=== PATIENT | male | born 1955 | race Caucasian/White ===

== ENCOUNTER 2017-07-21 09:12 | Inpatient (IN) | payer OTHER, MEDICARE ==
[2017-07-21] VITALS (7 sets, daily range): BP systolic 90–121; BP diastolic 48–59
[~2017-07-21] VITALS: Ht 170.2 cm; Wt 115.4 kg
[2017-07-21 09:52] LABS: ALBUMIN 3.6 g/dL (3.2-4.8); CHLORIDE 102 mEq/L (99-109); SODIUM 140 mEq/L (136-147)
[2017-07-21 09:54] LABS: GLUCOSE 127 mg/dL (70-99)
[2017-07-21 09:55] LABS: BASOPHIL (%) 0 % (0-1); EOSINOPHIL (%) 0 % (0-5); HEMATOCRIT 16.8 % (38.0-50.0); IMMATURE GRANULOCYTE (%) 1.2 % (0.0-0.7); LYMPHOCYTE (%) 2.7 % (15-42); LYMPHOCYTE COUNT 0.6 K/uL (1.0-2.8); MCH 24.4 PG (29.0-34.0); MCHC 29.8 G/DL (30.0-36.0); MONOCYTE (%) 4.4 % (3-12); MONOCYTE COUNT 0.9 K/uL (0-0.8); NEUTROPHIL (%) 91.7 % (45-76); NRBC (%) 0.5 /100 WBC (0-0); PLATELET COUNT 141 K/uL (156-360); RBC DIS.WIDTH-CV 20.2 % (11.8-14.6); RBC DIS.WIDTH-SD 58.6 % (39-53); RED BLOOD COUNT 2.05 M/uL (4.00-5.50); WHITE BLOOD COUNT 20.7 K/uL (4.1-10.2)
[2017-07-21 09:56] LABS: TOTAL BILIRUBIN 3.4 mg/dL (0.0-1.0)
[2017-07-21 09:58] LABS: ALKALINE PHOSPHATASE 355 IU/L (3-129); CREATININE 8.7 mg/dL (0.6-1.3); GFR ESTIMATE (CALCULATED) 7 mL/min/ (58.99-99999)
[2017-07-21 10:00] LABS: AST (GOT) 211 IU/L (2-34)
[2017-07-21 10:01] LABS: ALT (GPT) 265 IU/L (3-49)
[2017-07-21 10:03] LABS: POTASSIUM 6.3 mEq/L (3.7-5.4)
[2017-07-21 10:12] LABS: UREA NITROGEN (BUN) 179 mg/dL (9-23)
[2017-07-21] MEDS ORDERED: AMLODIPINE BES2.5 MG PO (10:47)
[2017-07-21] MEDS ORDERED: CLOPIDOGREL75 MG PO (10:48)
[2017-07-21] MEDS ORDERED: VALSARTAN160 MG PO (10:49)
[2017-07-21] MEDS ORDERED: CILOSTAZOL50 MG PO (10:49)
[2017-07-21] MEDS ORDERED: ELIQUIS5 MG PO (10:50)
[2017-07-21] MEDS ORDERED: LOPRESSOR50 MG PO (10:50)
[2017-07-21] MEDS ORDERED: ZANTAC150 MG PO (10:51)
[2017-07-21 11:08] LABS: INTER. NORMALIZED RATIO 1.3
[2017-07-21 11:08] LABS: APPEARANCE CLOUDY ((CLEAR)); BILIRUBIN NEGATIVE; BLOOD MODERATE; COLOR AMBER ((YELLOW)); GLUCOSE (STRIP) NEGATIVE; KETONES NEGATIVE; LEUKOCYTES LARGE; NITRITE NEGATIVE; PROTEIN (STRIP) 100; SPECIFIC GRAVITY 1.014 (1.000-1.030); UROBILINOGEN 0.2 MG/DL (0.2-1.0)
[2017-07-21 11:31] LABS: RED BLOOD CELLS TNTC /HPF (0-5); WHITE BLOOD CELLS TNTC /HPF (0-5)
[2017-07-21 11:32] LABS: AMORPHOUS URATES CRYSTALS 2+; BACTERIA 2+ /HPF; EPITHELIAL CELLS NONE SEEN /HPF; MUCUS NONE SEEN /LPF; UCUL ADDED? YES
[2017-07-21 13:28] LABS: BASE EXCESS -0.9 mEq/L (-3 to +3); BICARBONATE 21.3 mEq/L (22-26); PCO2 28 mm Hg (35-45); PO2 76 mm Hg (80-100); SITE RR; pH 7.49 (7.35-7.45)
[2017-07-21 13:29] LABS: COMMENTS - BLOOD GASES NAC+; FI02 21 %
[2017-07-21 17:34] LABS: CHLORIDE 102 MEQ/L (99-109); CREATININE 7.9 MG/DL (0.6-1.3); GFR ESTIMATE (CALCULATED) 7 mL/min/ (58.99-99999); GLUCOSE 134 mg/dL (70-99); POTASSIUM 5.5 MEQ/L (3.7-5.4); SODIUM 140 MEQ/L (136-147); UREA NITROGEN (BUN) 170 mg/dL (9-23)
[2017-07-21 21:16] LABS: HEMATOCRIT 18.6 % (38.0-50.0); HEMOGLOBIN 5.8 G/DL (12.5-16.6); MCV 83.4 FL (86-99)
[2017-07-21 21:39] LABS: CHLORIDE 102 MEQ/L (99-109); CREATININE 7.7 MG/DL (0.6-1.3); GFR ESTIMATE (CALCULATED) 8 mL/min/ (58.99-99999); GLUCOSE 136 mg/dL (70-99); POTASSIUM 5.3 MEQ/L (3.7-5.4); SODIUM 139 MEQ/L (136-147)
[2017-07-21 21:40] LABS: UREA NITROGEN (BUN) 164 mg/dL (9-23)
[2017-07-21 22:07] LABS: HEMATOCRIT 19.3 % (38.0-50.0); MCH 25.9 PG (29.0-34.0); MCHC 31.1 G/DL (30.0-36.0); MCV 83.2 FL (86-99); NRBC (%) 0.3 /100 WBC (0-0); RBC DIS.WIDTH-CV 19.7 % (11.8-14.6); RBC DIS.WIDTH-SD 59.3 % (39-53); RED BLOOD COUNT 2.32 M/uL (4.00-5.50); WHITE BLOOD COUNT 17.8 K/uL (4.1-10.2)
[2017-07-21 22:14] LABS: PLATELET COUNT ND K/uL (156-360)
[2017-07-21 22:19] LABS: ALKALINE PHOSPHATASE 267 IU/L (3-129); ALT (GPT) 199 IU/L (3-49); AST (GOT) 161 IU/L (2-34); CHLORIDE 104 MEQ/L (99-109); CREATININE 7.8 MG/DL (0.6-1.3); GFR ESTIMATE (CALCULATED) 8 mL/min/ (58.99-99999); GLUCOSE 132 mg/dL (70-99); MAGNESIUM 4.1 mg/dl (1.3-2.7); PHOSPHORUS 6.3 mg/dL (2.5-4.9); POTASSIUM 5.5 MEQ/L (3.7-5.4); SODIUM 141 MEQ/L (136-147); TOTAL BILIRUBIN 3.2 MG/DL (0.0-1.0); TOTAL PROTEIN 5.4 G/DL (6.4-8.3)
[2017-07-21 22:25] LABS: UREA NITROGEN (BUN) 162 mg/dL (9-23)
[2017-07-22] VITALS (9 sets, daily range): BP systolic 97–119; BP diastolic 50–89
[2017-07-22 00:02] LABS: APPEARANCE TURBID ((CLEAR)); BILIRUBIN NEGATIVE; BLOOD MODERATE; GLUCOSE (STRIP) NEGATIVE; KETONES NEGATIVE; LEUKOCYTES LARGE; NITRITE NEGATIVE; PROTEIN (STRIP) 100; SPECIFIC GRAVITY 1.013 (1.000-1.030); UROBILINOGEN 0.2 MG/DL (0.2-1.0)
[2017-07-22 00:04] LABS: COLOR YELLOW ((YELLOW))
[2017-07-22 00:41] LABS: WHITE BLOOD CELLS TNTC /HPF (0-5)
[2017-07-22 00:42] LABS: BACTERIA 3+ /HPF; EPITHELIAL CELLS 1+ /HPF; MUCUS NONE SEEN /LPF; RED BLOOD CELLS TNTC /HPF (0-5)
[2017-07-22 00:45] LABS: AMORPHOUS URATES CRYSTALS 1+; FINE GRANULAR CASTS 0-5 /LPF
[2017-07-22 02:25] LABS: HEMATOCRIT 19.6 % (38.0-50.0); HEMOGLOBIN 6.2 G/DL (12.5-16.6); MCV 83.1 FL (86-99)
[2017-07-22 07:51] LABS: HEMATOCRIT 19.7 % (38.0-50.0); MCV 84.5 FL (86-99)
[2017-07-22 07:52] LABS: INTER. NORMALIZED RATIO 1.2
[2017-07-22 07:54] LABS: PTT 20.9 SEC (25-37)
[2017-07-22 08:27] LABS: ALBUMIN 3.1 G/DL (3.2-4.8); ALKALINE PHOSPHATASE 283 IU/L (3-129); ALT (GPT) 218 IU/L (3-49); AST (GOT) 178 IU/L (2-34); CHLORIDE 105 MEQ/L (99-109); CREATININE 7.9 MG/DL (0.6-1.3); GFR ESTIMATE (CALCULATED) 7 mL/min/ (58.99-99999); GLUCOSE 146 mg/dL (70-99); POTASSIUM 5.4 MEQ/L (3.7-5.4); SODIUM 142 MEQ/L (136-147); TOTAL BILIRUBIN 3.6 MG/DL (0.0-1.0); TOTAL PROTEIN 5.1 G/DL (6.4-8.3)
[2017-07-22 08:39] LABS: UREA NITROGEN (BUN) 161 mg/dL (9-23)
[2017-07-22 14:32] LABS: ANTI-HEPATITIS B CORE (TOTAL) Nonreactive
[2017-07-22 14:33] LABS: HEPATITIS B SURFACE ANTIBODY Nonreactive; HEPATITIS B SURFACE ANTIGEN Nonreactive; HEPATITIS C ANTIBODY Nonreactive
[2017-07-22 14:35] LABS: ANTI-HEPATITIS A VIRUS (IGM) Nonreactive
[2017-07-22 15:12] LABS: BASOPHIL (%) 0.1 % (0-1); EOSINOPHIL (%) 0.1 % (0-5); HEMATOCRIT 22.9 % (38.0-50.0); HEMOGLOBIN 7.2 G/DL (12.5-16.6); IMMATURE GRANULOCYTE (%) 1.8 % (0.0-0.7); LYMPHOCYTE COUNT 0.6 K/uL (1.0-2.8); MCH 27.2 PG (29.0-34.0); MCHC 31.4 G/DL (30.0-36.0); MCV 86.4 FL (86-99); MONOCYTE (%) 5.2 % (3-12); NEUTROPHIL (%) 89.8 % (45-76); NRBC (%) 0.3 /100 WBC (0-0); RBC DIS.WIDTH-CV 19.3 % (11.8-14.6); RBC DIS.WIDTH-SD 59.7 % (39-53); RED BLOOD COUNT 2.65 M/uL (4.00-5.50); WHITE BLOOD COUNT 18.9 K/uL (4.1-10.2)
[2017-07-22 15:15] LABS: PLATELET COUNT 75 K/uL (156-360)
[2017-07-23 03:51] VITALS: BP 112/62
[2017-07-23 07:16] VITALS: BP 133/66
[2017-07-23 12:19] LABS: ANTI-HEPATITIS B CORE (IGM) Nonreactive
[2017-07-23 13:15] LABS: BASOPHIL (%) 0.1 % (0-1); EOSINOPHIL (%) 0.1 % (0-5); HEMATOCRIT 25.8 % (38.0-50.0); HEMOGLOBIN 8.1 G/DL (12.5-16.6); IMMATURE GRANULOCYTE (%) 1.5 % (0.0-0.7); LYMPHOCYTE (%) 2.9 % (15-42); LYMPHOCYTE COUNT 0.5 K/uL (1.0-2.8); MCH 27.2 PG (29.0-34.0); MCHC 31.4 G/DL (30.0-36.0); MCV 86.6 FL (86-99); MONOCYTE COUNT 1.1 K/uL (0-0.8); NEUTROPHIL (%) 89.4 % (45-76); NEUTROPHIL COUNT 16.5 K/uL (1.8-6.4); NRBC (%) 0.2 /100 WBC (0-0); RBC DIS.WIDTH-CV 19.3 % (11.8-14.6); RBC DIS.WIDTH-SD 59.6 % (39-53); RED BLOOD COUNT 2.98 M/uL (4.00-5.50); WHITE BLOOD COUNT 18.4 K/uL (4.1-10.2)
[2017-07-23 13:28] LABS: IMM.PLATELET FRACTION 6.2 (1-7); PLAT.SUFFICIENCY VERY DECREASED
[2017-07-23] MEDS ORDERED: CEFDINIR300 MG PO (13:32)
[2017-07-23 13:42] LABS: ALKALINE PHOSPHATASE 295 IU/L (3-129); ALT (GPT) 193 IU/L (3-49); AST (GOT) 177 IU/L (2-34); CHLORIDE 105 MEQ/L (99-109); GLUCOSE 117 mg/dL (70-99); POTASSIUM 4.9 MEQ/L (3.7-5.4); SODIUM 141 MEQ/L (136-147); TOTAL PROTEIN 5.2 G/DL (6.4-8.3)
[2017-07-23 13:52] LABS: CREATININE 5.9 MG/DL (0.6-1.3); GFR ESTIMATE (CALCULATED) 10 mL/min/ (58.99-99999); TOTAL BILIRUBIN 5.2 MG/DL (0.0-1.0); UREA NITROGEN (BUN) 111 mg/dL (9-23)
[2017-07-23 14:03] LABS: PLATELET COUNT 49 K/uL (156-360)
== END 2017-07-23 15:40 | disposition hospice, home (50) | DRG 843 ==
LOC: EME 09:12 → EDOF 11:34 → 4EAST 11:34 → ENRESERV 11:38 → EDOF 11:38 → ENRESERV 11:52 → 4EAST 14:35
PROVIDERS: Emergency Medicine; Hospitalist; Internal Medicine; Internal Medicine Nephrology
PROC: 30233N1 Transfusion of Nonautologous Red Blood Cells into Peripheral Vein, Percutaneous Approach (ICD-10-PCS; principal; 2017-07-21)
PROC: 02HV33Z Insertion of Infusion Device into Superior Vena Cava, Percutaneous Approach (ICD-10-PCS; 2017-07-22)
PROC: 5A1D70Z Performance of Urinary Filtration, Intermittent, Less than 6 Hours Per Day (ICD-10-PCS; 2017-07-22)
DX: C80.1 Malignant (primary) neoplasm, unspecified (principal); N17.0 Acute kidney failure with tubular necrosis; K76.7 Hepatorenal syndrome; K92.2 Gastrointestinal hemorrhage, unspecified; E87.5 Hyperkalemia; E87.2 Acidosis; E86.0 Dehydration; N28.0 Ischemia and infarction of kidney; I48.91 Unspecified atrial fibrillation; T80.89XA Other complications following infusion, transfusion and therapeutic injection, initial encounter; R21 Rash and other nonspecific skin eruption; Y84.8 Other medical procedures as the cause of abnormal reaction of the patient, or of later complication, without mention of misadventure at the time of the procedure; T46.5X5A Adverse effect of other antihypertensive drugs, initial encounter; D50.0 Iron deficiency anemia secondary to blood loss (chronic); N39.0 Urinary tract infection, site not specified; C78.7 Secondary malignant neoplasm of liver and intrahepatic bile duct; R59.1 Generalized enlarged lymph nodes; R91.1 Solitary pulmonary nodule; R79.1 Abnormal coagulation profile; R74.0 Nonspecific elevation of levels of transaminase and lactic acid dehydrogenase [LDH]; I10 Essential (primary) hypertension; E11.9 Type 2 diabetes mellitus without complications; E78.5 Hyperlipidemia, unspecified; K21.9 Gastro-esophageal reflux disease without esophagitis; Z51.5 Encounter for palliative care; Z66 Do not resuscitate; E66.01 Morbid (severe) obesity due to excess calories; Z68.39 Body mass index [BMI] 39.0-39.9, adult; Z86.718 Personal history of other venous thrombosis and embolism; Z87.891 Personal history of nicotine dependence; Z99.3 Dependence on wheelchair; Z79.01 Long term (current) use of anticoagulants
CPT/HCPCS: 36600; 70450; 71045; 71250; 74176; 76770; 80048 91; 80053; 80074; 80162; 81003; 82436; 82803; 83605; 83735; 84100; 84300; 85014; 85018; 85025; 85027; 85610; 85730; 86704; 86706; 86850; 86880; 86900; 86901; 86920; 87040; 87077; 87086; 87186; 87340; 93005; 93306; 99281; 99285; A6214; C1751; C1752; C9113; J0456; J0696; J1160; J1200; J1644; J2060; J2930; J7030; J7070; P9016; S0028